=== PATIENT | male | born 1955 | race African-American/Black ===

== ENCOUNTER 2017-06-18 15:30 | Outpatient (CLI) | payer BC | END 2017-06-18 15:31 | disposition home or self-care (01) | LOC: BICRAD 15:30 | PROVIDERS: ATTEND Family Medicine | DX: I10 Essential (primary) hypertension (principal); M47.894 Other spondylosis, thoracic region; M17.11 Unilateral primary osteoarthritis, right knee; M25.462 Effusion, left knee; M25.562 Pain in left knee; M25.561 Pain in right knee | CPT/HCPCS: 71046 ==

== ENCOUNTER 2017-11-25 10:13 | Emergency (ER) | payer BC ==
[2017-11-25] MEDS ORDERED: HYDROcodone/Acetaminophen 5/325 mg Tablet ONE ×2 (11:21→11:23)
--- NOTE | 2017-11-25 11:54 | RAD ---
LEFT KNEE FOUR VIEWS: History: 62-year-old male with history of left knee pain without injury. Comparison: 01-09-16 FINDINGS: Degenerative changes without acute fracture or dislocation. Stable from prior study. IMPRESSION: No fracture or dislocation. Stable degenerative changes. POS: [facility]
== END 2017-11-25 13:15 | disposition home or self-care (01) ==
LOC: ERS 10:13
DX: M25.562 Pain in left knee (principal); E78.5 Hyperlipidemia, unspecified; I10 Essential (primary) hypertension; Z86.73 Personal history of transient ischemic attack (TIA), and cerebral infarction without residual deficits; Z79.82 Long term (current) use of aspirin; Z79.899 Other long term (current) drug therapy

== ENCOUNTER 2018-04-28 01:40 | Emergency (ER) | payer BC ==
[2018-04-28] MEDS ORDERED: Ketorolac Tromethamine 60 MG/2 ML VIAL ONE (03:07)
--- NOTE | 2018-04-28 08:16 | RAD ---
RADIOGRAPH CHEST 2 VIEWS: HISTORY: A 62-year-old male with cough. FINDINGS: There is no air space density, pulmonary edema, pleural effusion, pneumothorax, or cardiomegaly. IMPRESSION: No acute cardiopulmonary findings. jn [] POS: [facility]
== END 2018-04-28 03:50 | disposition home or self-care (01) ==
LOC: ERS 01:40
DX: J18.9 Pneumonia, unspecified organism (principal); E87.5 Hyperkalemia; E78.5 Hyperlipidemia, unspecified; I10 Essential (primary) hypertension; Z86.73 Personal history of transient ischemic attack (TIA), and cerebral infarction without residual deficits
CPT/HCPCS: 71046; 96372; J1885

== ENCOUNTER 2019-11-22 22:09 | Emergency (ER) | payer BC, OTHER ==
[2019-11-23] MEDS ORDERED: Acetaminophen 500 MG TAB ONE (00:31)
--- NOTE | 2019-11-23 08:22 | RAD ---
RADIOGRAPH CHEST 1 VIEW: DATE: 11/23/2019 TIME: 12:05 AM HISTORY: 64 year old COVID-19 positive male with worsening cough COMPARISON: 04/28/2018 FINDINGS: There is a new finding of small focal faint patchy infiltrate at left infrahilar mid-lower lung zone. New finding of small patchy regions of increased attenuation at medial bases of bilateral lower lobes . No cardiomegaly, pulmonary edema, or pneumothorax. No effacement of lateral costophrenic angles. IMPRESSION: Small left infiltrate, and possibly additional small bibasilar infiltrates: Evidence for pneumonia, p robably COVID-19
== END 2019-11-23 00:36 | disposition home or self-care (01) ==
LOC: ERS 22:09
DX: U07.1 COVID-19 (principal); E78.5 Hyperlipidemia, unspecified; E78.00 Pure hypercholesterolemia, unspecified; I10 Essential (primary) hypertension; Z85.528 Personal history of other malignant neoplasm of kidney; Z86.73 Personal history of transient ischemic attack (TIA), and cerebral infarction without residual deficits; Z79.899 Other long term (current) drug therapy
CPT/HCPCS: 71045